=== PATIENT | female | born 1990 | race American Indian/Alaskan Native ===

== ENCOUNTER 2017-01-15 16:57 | Emergency (ER) | payer OTHER ==
[2017-01-15 16:59] VITALS: BMI 26.6
[2017-01-15 17:03] VITALS: RESP 18; TEMP 98
[2017-01-15] MEDS ORDERED: Sodium Chloride 0.9% 1,000 ML IV STA (17:18)
--- NOTE | 2017-01-15 17:21 | ED PDOC ---
Arrival/HPI - General Chief Complaint: Dizziness/Lightheaded Time Seen by Provider: 01/15/17 17:10 Historian: Patient, Parent - History of Present Illness Narrative History of Present Illness (Text): 01/15/17 17:10 A 26 year old female, whose past medical history includes fibroids, ovarian cysts, heavy menstrual bleeding, and a blood and iron transfusion about 3 years ago, presents to the emergency department complaining of a constant headache since earlier today. Patient notes associated dizziness, photophobia and nausea. Patient states her symptoms are worse with movement and relieved by staying still. Patient denies any fever, chills, vomiting, diarrhea, abdominal pain, chest pain, shortness of breath or any other complaints. Patients last menstrual period ended yesterday. PMD: Dr. Burdick Time/Duration: Other (Earlier today during work) Symptom Course: Unchanged Quality: Other Context: Work Past Medical History - Provider Review Nursing Documentation Reviewed: Yes - Infectious Disease Hx of Infectious Diseases: None - Psychiatric Hx Substance Use: No - Surgical History Other/Comment: cyst removal. myomectomy - Anesthesia Hx Anesthesia: Yes Hx Anesthesia Reactions: No Hx Malignant Hyperthermia: No Family/Social History - Physician Review Nursing Documentation Reviewed: Yes Family/Social History: No Known Family HX Smoking Status: Never Smoked Hx Alcohol Use: Yes Frequency of alcohol use: Daily Hx Substance Use: No Allergies/Home Meds Allergies/Adverse Reactions: Allergies No Known Allergies Allergy (Verified 01/15/17 16:59) Review of Systems - Physician Review All systems were reviewed & negative as marked: Yes - Review of Systems Constitutional: absent: Fevers, Night Sweats Eyes: Photophobia Respiratory: absent: SOB Cardiovascular: absent: Chest Pain Gastrointestinal: Nausea. absent: Abdominal Pain, Diarrhea, Vomiting Neurological: Headache, Dizziness Physical Exam - Physical Exam Narrative Physical Exam (Text): Constitutional: No acute distress. Head: Normocephalic. Atraumatic. Eyes: PERRL. Bilateral nystagmus. ENT: Moist mucous membranes. Neck: Supple. Cardiovascular: Regular rate. Chest: No tenderness. Respiratory: Clear to auscultation bilaterally. GI: Soft. Nontender. Nondistended. Back: No CVA tenderness. Musculoskeletal: No tenderness or swelling of extremities. Skin: No rash. Neurologic: Alert, no focal deficit. Finger to Nose Exam Normal. Heel to Lorenzo Exam Normal. Positive camille hallpike maneuver. Vital Signs Reviewed: Yes Vital Signs Temp Pulse Resp BP Pulse Ox 01/15/17 17:02 98.0 F 79 18 155/93 H 100 Temperature: Afebrile Pulse: Regular Respiratory Rate: Normal Pain Distress: None Mental Status: Positive for: Alert and Oriented X 3 Finger Stick Blood Glucose: 83 Medical Decision Making ED Course and Treatment: 01/15/17 17:30 Impression: A 26 year old female with a headache. Patient notes associated dizziness, photophobia and nausea. Considering BPPV vs migraine headache vs anemia. Plan: -- Labs -- Urinalysis -- Toradol, Antivert, Reglan and IV fluids -- Reassess and disposition Progress Notes: Patient feels better after treatment with improved headache and dizziness. Recommended f/u ENT, return to ER for worsening pain, fever, stiff neck, vomiting, unsteady gait, or any other problem. - Lab Interpretations Lab Results: 01/15/17 17:45 01/15/17 17:45 Lab Results 01/15/17 17:45: Sodium 141, Potassium 4.0, Chloride 103, Carbon Dioxide 27, Anion Gap 15, BUN 15, Creatinine 0.8, Est GFR ( Amer) > 60, Est GFR (Non- Af Amer) > 60, Random Glucose 93, Calcium 9.6, Total Bilirubin 0.4, AST 40 H, ALT 39, Alkaline Phosphatase 62, Total Protein 8.4 H, Albumin 4.6, Globulin 3.7 , Albumin/Globulin Ratio 1.2 01/15/17 17:45: Urine Color Yellow, Urine Appearance Clear, Urine pH 7.0, Ur Specific [place] 1.025, Urine Protein Trace H, Urine Glucose (UA) Negative, Urine Ketones Trace H, Urine Blood Moderate H, Urine Nitrate Negative, Urine Bilirubin Negative, Urine Urobilinogen 1.0 H, Ur Leukocyte Esterase Negative, Urine RBC 2 - 5, Urine WBC 0 - 2, Ur Epithelial Cells 4 - 5, Urine Bacteria Mod , Urine HCG, Qual Negative 01/15/17 17:45: WBC 6.2, RBC 4.21, Hgb 13.6, Hct 39.5, MCV 93.8, MCH 32.3, MCHC 34.4, RDW 11.8, Plt Count 207, MPV 10.3, Gran % 65.0, Lymph % (Auto) 28.3, Colbert % (Auto) 5.3, Eos % (Auto) 1.1 L, Baso % (Auto) 0.3, Gran # 4.05, Lymph # 1.8, Colbert # 0.3, Eos # 0.1, Baso # 0.02 I have reviewed the lab results: Yes - Medication Orders Current Medication Orders: Discontinued Medications Sodium Chloride (Sodium Chloride 0.9%) 1,000 mls @ 999 mls/hr IV .Q1H1M STA Stop: 01/15/17 18:18 Last Admin: 01/15/17 17:45 Dose: 999 mls/hr Ketorolac Tromethamine (Toradol) 30 mg IVP STAT STA Stop: 01/15/17 17:18 Last Admin: 01/15/17 17:57 Dose: 30 mg Meclizine HCl (Antivert) 25 mg PO STAT STA Stop: 01/15/17 17:18 Last Admin: 01/15/17 17:56 Dose: 25 mg Metoclopramide HCl (Reglan) 10 mg IVP STAT STA Stop: 01/15/17 17:18 Last Admin: 01/15/17 17:59 Dose: 10 mg - Scribe Statement The provider has reviewed the documentation as recorded by the Elmer Castro training under Stephanie Martinez Provider Scribe Attestation: All medical record entries made by the Scribe were at my direction and personally dictated by me. I have reviewed the chart and agree that the record accurately reflects my personal performance of the history, physical exam, medical decision making, and the department course for this patient. I have also personally directed, reviewed, and agree with the discharge instructions and disposition. Disposition/Present on Arrival - Present on Arrival Any Indicators Present on Arrival: No History of DVT/PE: No History of Uncontrolled Diabetes: No Urinary Catheter: No History of Decub. Ulcer: No History Surgical Site Infection Following: None - Disposition Have Diagnosis and Disposition been Completed?: Yes Diagnosis: Headache, Dizziness Disposition: HOME/ ROUTINE Disposition Time: 18:32 Patient Plan: Discharge Condition: STABLE Discharge Instructions (ExitCare): Migraine Headache (ED), Benign Paroxysmal Positional Vertigo (ED) Prescriptions: Meclizine [Antivert] 25 mg PO TID PRN #20 tab PRN Reason: Dizziness Referrals: Samontya,Brit D, MD [Primary Care Provider] - Follow up with primary Espinoza Maher DO [Staff Provider] - Follow up with primary
[2017-01-15 17:53] LABS: BASO # 0.02 K/mm3 (0.0-2.0); BASO % 0.3 % (0.0-3.0); EOS # 0.1 (0.0-0.7); EOS % 1.1 % (1.5-5.0); GRAN # 4.05 (1.4-6.5); HEMOGLOBIN 13.6 gm/dL (12.0-16.0); LYMPH # 1.8 (1.2-3.4); LYMPH % 28.3 % (22.0-35.0); MEAN CELL VOLUME 93.8 fL (80.0-105.0); MEAN CORPUSCULAR HEMOGLOBIN 32.3 pg (25.0-35.0); MEAN CORPUSCULAR HGB CONC 34.4 g/dl (31.0-37.0); MEAN PLATELET VOLUME 10.3 fl (7.0-11.0); MONO # 0.3 (0.1-0.6); MONO % 5.3 % (1.0-6.0); PLATELET COUNT 207 10^3/uL (120.0-450.0); RBC 4.21 10^6/uL (3.5-6.1); RED CELL DISTRIBUTION WIDTH 11.8 % (11.5-14.5); WHITE BLOOD COUNT 6.2 10^3/ul (4.5-11.0)
[2017-01-15 18:09] LABS: ALB/GLOB RATIO 1.2 (1.1-1.8); ALBUMIN 4.6 g/dL (3.0-4.8); ALT/SGPT 39 U/L (7-56); AST/SGOT 40 U/L (15-39); BLOOD UREA NITROGEN 15 mg/dL (7-21); CALCIUM 9.6 mg/dL (8.4-10.5); GFR AFRICAN-AMERICAN > 60; GFR NON-AFRICAN AMERICAN > 60
[2017-01-15 18:23] LABS: URINE BILIRUBIN NEGATIVE (NEGATIVE); URINE BLOOD MODERATE (NEGATIVE); URINE GLUCOSE (UA) NEGATIVE (NEGATIVE); URINE LEUKOCYTE ESTERASE NEGATIVE Leu/uL (NEGATIVE); URINE NITRATE NEGATIVE (NEGATIVE); URINE PROTEIN TRACE mg/dL (<30 mg/dL)
[2017-01-15 18:31] LABS: URINE APPEARANCE CLEAR (CLEAR); URINE COLOR YELLOW (YELLOW)
[2017-01-15 18:32] LABS: HCG,QUALITATIVE URINE NEGATIVE (NEGATIVE)
[2017-01-15 18:57] LABS: URINE BACTERIA MOD (NEG); URINE WBC 0 - 2 /hpf (0-6)
[2017-01-15 19:59] VITALS: BP 141/70; PULSE 84; O2SAT 98
== END 2017-01-15 19:00 | disposition home or self-care (01) ==
LOC: MERGE 16:57 → ED 16:57
DX: R42 Dizziness and giddiness (principal); R51 Headache
CPT/HCPCS: 80053; 81001; 84703; 85025; 96374; 96375; 99285; J1885; J2765; J7040